=== PATIENT | female | born 1955 | race Caucasian/White ===

== ENCOUNTER → 2018-06-12 | Outpatient (CLI) | payer OTHER ==
--- NOTE | 2018-06-12 18:59 | XCELERA REPORT ---
[address] [facility] [address] Lower Extremity Venous Evaluation Procedure: Color flow and duplex imaging of the veins of the right lower extremity as well as the left Common Femoral vein. Right Sided Venous Evaluation Normal vessel filling wall to wall, compression and augmentation as well as Colour flow down to the infrageniculate veins. Left Sided Venous Evaluation The left common femoral vein is fully compressible. Spontaneous and phasic flow is present in the left common femoral vein. Interpretation Summary No duplex evidence of DVT or obstruction in the right lower extremity nor in the left Common Femoral vein. Name: ANDREW BARBOZA Age: 62 yrs Gender: Female : 1955 Patient Status: Outpatient Patient Location: Study Date: 06/12/2018 02:15 PM Reason For Study: RLE SWELLING Ordering Physician: ANGIE GERMAN Performed By: Rebeca Velazco : ANGIE GERMAN > Rickey Obando
== END ==
LOC: SP 13:41
PROVIDERS: ATTEND Family Medicine
DX: R22.42 Localized swelling, mass and lump, left lower limb (principal); R22.41 Localized swelling, mass and lump, right lower limb
CPT/HCPCS: 93971

== ENCOUNTER 2018-12-30 16:51 | Emergency (ER) | payer OTHER, BC ==
[2018-12-30 17:03] VITALS: BP 116/52
--- NOTE | 2018-12-30 17:36 | ER Document Report ---
ED General - General Chief Complaint: Diarrhea Stated Complaint: DIARRHEA Time Seen by Provider: 12/30/18 17:19 Primary Care Provider: ANGIE GERMAN MD [Primary Care Provider] - Follow up as needed TRAVEL OUTSIDE OF THE [place] IN LAST 30 DAYS: No - HPI Patient complains to provider of: Diarrhea Notes: Patient coming in for evaluation of diarrhea ongoing for greater than the last 3 days. Patient was recently seen by dentist placed on clindamycin. Patient states diarrhea started after the clindamycin. Patient denies any fevers chills, pain. Patient states having approximately 5-6 loose stools a day. Patient denies any other sick contacts denies any other antibiotic use. Denies history of C. difficile. Patient otherwise looks to be nontoxic. Patient states she was not told by her dentist that the antibiotic would cause diarrhea nor has she used any probiotics or yogurt to help out with her diarrhea. Patient looks to be nontoxic - Related Data Allergies/Adverse Reactions: cephalexin monohydrate [From Keflex] Adverse Reaction (Mild, Verified 08/25/11 15:57) nausea and vomiting aspirin [Aspirin] Adverse Reaction (Verified 08/25/11 15:57) stomach upset Past Medical History - Social History Smoking Status: Never Smoker Chew tobacco use (# tins/day): No Frequency of alcohol use: None Drug Abuse: None Family History: Malignancy Patient has suicidal ideation: No Patient has homicidal ideation: No Neurological Medical History: Reports: Hx Migraine - ON METHADONE 10mg QID Renal/ Medical History: Denies: Hx Peritoneal Dialysis Psychiatric Medical History: Reports: Hx Anxiety - PANIC ATTACKS Past Surgical History: Reports: Hx Abdominal Surgery - laproscopy for endometriosis - Immunizations Immunizations up to date: Yes Hx Diphtheria, Pertussis, Tetanus Vaccination: Yes Review of Systems - Review of Systems Constitutional: No symptoms reported EENT: No symptoms reported Cardiovascular: No symptoms reported Respiratory: No symptoms reported Gastrointestinal: Diarrhea Genitourinary: No symptoms reported Female Genitourinary: No symptoms reported Musculoskeletal: No symptoms reported Skin: No symptoms reported Hematologic/Lymphatic: No symptoms reported Neurological/Psychological: No symptoms reported -: Yes All other systems reviewed and negative Physical Exam - Vital signs Vitals: Temp Pulse Resp BP Pulse Ox 98.0 F 91 16 116/52 L 97 12/30/18 17:02 12/30/18 17:02 12/30/18 17:02 12/30/18 17:02 12/30/18 17:02 Interpretation: Normal - General General appearance: Appears well, Alert - HEENT Head: Normocephalic, Atraumatic Eyes: Normal Pupils: PERRL - Respiratory Respiratory status: No respiratory distress Chest status: Nontender Breath sounds: Normal Chest palpation: Normal - Cardiovascular Rhythm: Regular Heart sounds: Normal auscultation Murmur: No - Abdominal Inspection: Normal Distension: No distension Bowel sounds: Normal Tenderness: Nontender Organomegaly: No organomegaly - Back Back: Normal, Nontender - Extremities General upper extremity: Normal inspection, Nontender, Normal color, Normal ROM, Normal temperature General lower extremity: Normal inspection, Nontender, Normal color, Normal ROM, Normal temperature, Normal weight bearing. No: Yu's sign - Neurological Neuro grossly intact: Yes Cognition: Normal Orientation: AAOx4 Celeste Coma Scale Eye Opening: Spontaneous [place] Coma Scale Verbal: Oriented [place] Coma Scale Motor: Obeys Commands Celeste Coma Scale Total: 15 Speech: Normal Motor strength normal: LUE, RUE, LLE, RLE Sensory: Normal - Psychological Associated symptoms: Normal affect, Normal mood - Skin Skin Temperature: Warm Skin Moisture: Dry Skin Color: Normal Course - Re-evaluation Re-evalutation: 12/30/18 20:17 The patient presents with diarrhea without signs of peritonitis or other life- threatening or serious etiology. The patient appears stable for discharge and has been instructed to return immediately if the symptoms worsen in any way, or in 8-12hr if not improved for re-evaluation. The patient has been instructed to return if the symptoms worsen or change in any way. Time spent educating patient over ways to help out with her diarrhea including increasing fiber increase sugar uses [id number] prescription probiotic use. Patient states understanding. At this time patient's abdomen soft nontender. Patient does have approximately 2 more days of antibiotics to take. I do not think patient warrants C. difficile at this time patient has a nontender abdomen no fever they recommend to the patient if her diarrhea continues approximately 5-6 days after discontinuing the antibiotic to follow-up with her primary care physician for further testing. - Vital Signs Vital signs: Temp Pulse Resp BP Pulse Ox 98.0 F 91 16 116/52 L 97 12/30/18 17:02 12/30/18 17:02 12/30/18 17:02 12/30/18 17:02 12/30/18 17:02 Discharge - Discharge Clinical Impression: Antibiotic-associated diarrhea Condition: Good Disposition: HOME, SELF-CARE Instructions: Diarrhea, Nonspecific ([facility]) Additional Instructions: Your diarrhea is caused by use of antibiotic clindamycin. This is a very well- known side effect of this medication. Please continue your antibiotic. you can expect to continue to have diarrhea while on the antibiotic. Once you finish the antibiotic the diarrhea should improve the next 4 to 5 days. If you develop increased abdominal cramping fever I would highly recommend following up with your primary care physician or returning to the ER you may need further evaluation. I would highly recommend increasing her fiber intake to help out with your diarrhea. You may do this by eating leafy green vegetables [id number] fiber supplements prune-juice grape juice I would recommend increasing your intake of yogurt at least 1 cup of yogurt at every meal. I would recommend using probiotics. These are capsules of good bacteria to help reduce the diarrhea. I would also recommend applying A&D ointment to your buttocks as needed for irritation/raw skin from wiping Prescriptions: Lactobacillus 3/Fos/Pantethine [Probiotic & Acidophilus Cap] 1 each PO DAILY #30 capsule Ondansetron HCl [Zofran 4 mg Tablet] 1 - 2 tab PO Q6 #30 tablet Forms: Return to Work Referrals: ANGIE GERMAN MD [Primary Care Provider] - Follow up as needed
== END 2018-12-30 17:39 | disposition home or self-care (01) ==
LOC: ER 16:51
DX: T36.95XA Adverse effect of unspecified systemic antibiotic, initial encounter (principal); R19.7 Diarrhea, unspecified; Z79.899 Other long term (current) drug therapy
CPT/HCPCS: 99284